=== PATIENT | male | born 1960 | race Caucasian/White ===

== ENCOUNTER → 2017-10-28 09:13 | Outpatient (CLI) | payer BC, SELFPAY ==
[2017-10-28 11:11] LABS: Cholesterol 195 mg/dL (50-200); HDL Cholesterol 50 mg/dL (40-60); LDL CHOLESTEROL 137 mg/dL (<100); Triglyceride 59 mg/dL (30-150)
[2017-10-29 13:56] LABS: Lyme Ab w Rflx to Lyme Confirm Negative
[2017-10-30 00:22] LABS: Anaplasma phagocytophilum Negative (Negative); B. miyamotoi PCR Negative (Negative); Babesia divergens/MO-1 Negative (Negative); Babesia duncani Negative (Negative); Babesia microti Negative (Negative); Ehrlichia chaffeensis Negative (Negative); Ehrlichia ewingii/canis Negative (Negative); Ehrlichia muris eauclairensis Negative (Negative)
== END ==
PROVIDERS: PCP Family Medicine; Visit Provider Family Medicine
DX: Z00.00 Encounter for general adult medical examination without abnormal findings (principal); Z13.220 Encounter for screening for lipoid disorders; Z91.89 Other specified personal risk factors, not elsewhere classified
CPT/HCPCS: 36415; 80061; 83721; 86618; 87798

== ENCOUNTER 2018-11-03 10:04 | Outpatient (CLI) | payer BC, SELFPAY ==
[2018-11-04 12:50] LABS: Lyme Ab w Rflx to Lyme Confirm Negative
== END 2018-11-03 10:24 ==
PROVIDERS: PCP Family Medicine; Visit Provider Family Medicine
DX: Z00.00 Encounter for general adult medical examination without abnormal findings (principal); Z11.8 Encounter for screening for other infectious and parasitic diseases
CPT/HCPCS: 36415; 86618

== ENCOUNTER 2019-01-07 06:09 | Day surgery (SDC) | payer BC, SELFPAY ==
[2019-01-07 06:30] VITALS: BP 107/69; PULSE 63; RESP 16; TEMP 36.5; O2SAT 98
[2019-01-07] MEDS: Lactated Ringers 1,000 ML 80 ML IV (06:45)
--- NOTE | 2019-01-07 07:28 | HPE_ITS ---
Date of service: 01/07/19 Time of Service: 07:28 Assessment and Plan Assessment and plan (1) Family hx of colon cancer requiring screening colonoscopy: Status: Acute Assessment and plan: Informed consent is obtained for the procedural (explained in simple layman's terms that the pt and/or family could understand) explaining risks vs benefits and alternatives to the procedure and consequences if we do not do the procedure and need/rational for the procedure. Risks include but are not limited to:bleeding, infection, perforation of esophagus, stomach, colon, small intestines, bronchus or trachea, or PTX. This would necessitate emergency surgery to repair the damage w/ possible ostomy; and other associated complications w/ the required surgery. Also complications of anesthesia including aspiration,HI/CVA/. History of Present Illness Consults Consult date: 01/07/19 Requesting physician: Uma Rayo Narrative: PreOP H&P: 58y/o male with history of BPH presents for colonoscopy screening pre-op. His last screening was in 2013, which was unremarkable. He reports a family history of colon cancer in his brother in his mid-fifties. He denies any changes in bowel habits including bloody or black tarry stools, abdominal pain, diarrhea or constipation. He denies constitutional symptoms. Denies use of marijuana or any other recreational or illegal drugs. He denies chest pain, palpitations, dyspnea or dyspnea with exertion. 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 He denies prior history or family history of adverse reactions or complications with anesthesia. pt is here today for CE he denies any changes in his health staTUS. denies recent ed admission. no new meds. no changes in health status. no new meds no URT s/s. Review of Systems Review of Systems ROS Unobtainable: All systems reviewed & are unremarkable except as noted in HPI and below PFSH Surgical History History of colonoscopy (Chronic) Repair of inguinal hernia 02/01/14;LEFT Family History Mother Heart disease Neoplasm LUNG Father Neoplasm Parkinson disease Brother Complete trisomy 21 syndrome Brother Heart disease CHF/PACEMAKER Myocardial infarction Neoplasm LYMPHOMA Brother Neoplasm COLON Grandfather Neoplasm LEUKEMIA Grandfather No problems noted. Grandmother No problems noted. Grandmother Neoplasm BREAST Sister Diabetes Depression Mental disorder Depression Sister No problems noted. Sister No problems noted. Sister Neoplasm BREAST Sister No problems noted. Brother No problems noted. Son No problems noted. Daughter No problems noted. Daughter No problems noted. Daughter No problems noted. Daughter No problems noted. Social History Smoking/Tobacco Use Status: Never Alcohol Intake: current Alcohol Intake frequency: a few times a month Drug use: Never Current gender identity: male Do you feel safe at home: Yes Meds Home Medications and Allergies Home Medications Medication Instructions Recorded Confirmed Type epinephrine [Epipen 2-Hieu] 0.3 mg IM ONCE #2 syringe 09/16/17 01/07/19 Rx acyclovir 800 mg tablet 800 mg PO DAILY PRN #90 tab 11/03/18 01/07/19 Rx tamsulosin 0.4 mg capsule 0.4 mg PO DAILY #90 tab-cap 11/03/18 01/07/19 Rx bisacodyl 5 mg tablet,delayed 5 mg PO ONCE #4 tab 12/04/18 01/07/19 Rx release polyethylene glycol 3350 17 238 g PO ONCE #238 gm 12/04/18 01/07/19 Rx gram/dose oral powder doxycycline hyclate 100 mg tablet 200 mg PO ONCE #2 tab 12/09/18 01/07/19 Rx Allergies Allergy/AdvReac Type Severity Reaction Status Date / Time bee venom protein (honey bee) Allergy Intermediate Swelling Verified 01/07/19 06:27 Exam Const General: cooperative, healthy appearing, comfortable and no acute distress Nutritional Appearance: average body habitus and well nourished Orientation: alert, awake and oriented x3 Other: PHYSICAL EXAM GENERAL APPEARANCE: Alert, healthy appearance, oriented, in no acute distress SKIN: No hyperpigmentation, vitiligo, or suspicious lesions No rashes. HYDRATION: Well hydrated HEAD, EYES, EARS, NECK, AND THROAT: Head is normocephalic, pupils equal, round, reactive to light and accommodation, ocular movement intact, sclera clear and no jaundice. Dentition intact. NECK: Supple, no lymphadenopathy. Trachea midline. LUNGS: normal respiration, clear to auscultation HEART: Regular rate and rhythm, EXTREMITY: No edema or cyanosis ABDOMEN: No hepatosplenomegaly, non tender to palpation, no masses or distention, no hernias. Normal bowel sounds NEURO: no focal neuro deficits. Results Last Vital Signs Temp 36.5 C 01/07/19 06:30 Pulse 63 01/07/19 06:30 Resp 16 01/07/19 06:30 BP 107/69 01/07/19 06:30 Pulse Ox 98 01/07/19 06:30
--- NOTE | 2019-01-07 08:00 | BOWEL_PTH ---
PATIENT: MEKHI BURROWS LOC: [facility] U#:[id number] AGE/SX: 58/M ROOM: RE01/07/[address]: Magda Ford : 1960 BED: DIS: 01/07/2019 SPEC #: [id number] RECD: 01/07/19 12:50 STATUS: MARY REQ #: [id number] JACK: 01/07/19 08:[address]: Magda Ford DEPT: Surgical Specimen RECD BY: Patti Escamilla ENTERED: 01/07/19 12:50 SP TYPE: Bowel OTHR DR: Uma Rayo MD, DC Tissues: 1 - BIOPSY BOWEL Procedures: GROSS AND MICRO LEVEL 4 Comments: [id number]
--- NOTE | 2019-01-07 08:06 | W.PM.DSUDISC ---
Discharge Plan Disposition Patient Disposition: HOME Condition: Good Discharge Details Reason For Visit: colon scope Attending Provider: Magda Ford Primary Care Provider: Uma Rayo Home Meds and New Rx's Prescriptions: Continued tamsulosin [Flomax] 0.4 mg capsule 0.4 mg PO DAILY Qty: 90 RF: 11 acyclovir 800 mg tablet 800 mg PO DAILY PRN (Reason: herpes) Qty: 90 RF: 4 epinephrine [EpiPen 2-Hieu] 0.3 MG/0.3 ML auto-injector 0.3 mg IM ONCE Qty: 2 RF: 0 doxycycline hyclate 100 mg tablet 200 mg PO ONCE Qty: 2 RF: 0 Discontinued polyethylene glycol 3350 17 gram/dose powder 238 g PO ONCE Qty: 238 RF: 0 bisacodyl [Dulcolax (bisacodyl)] 5 mg tablet,delayed release (DR/EC) 5 mg PO ONCE Qty: 4 RF: 0 Discharge Instructions Additional Instructions: Findings: x1 polyps in rectum may have some slight bleeding w/ first BM or in 7-10 days. If passing clots go to ED. repeat scope in 3-5 yrs Follow up: will send a letter in 2-3 wks w/ pathology results and when to repeat colonoscopy Please call if you develop: fevers >101.5 Nausea or Vomiting Abdominal pain that is not transient DAY SURGERY UNIT POST COLONOSCOPY INSTRUCTIONS 1. Because there will be medication in your system for the next 24 hours, you may feel a little sleepy. Your coordination will be affected. Therefore: a. Do not drive or operate dangerous equipment for 24 hours. b. Do not drink alcohol beverages for 24 hours (not even beer). c. Plan to go home and rest for the day. 2. Generally there are no restrictions on your activity after a day or so has gone by, but you may feel a bit fatigued for a few days. 3 After you arrive home you may have a light meal and return to a normal diet as you can tolerate it without feeling sick to your stomach. 4. After surgery, you may feel pain or discomfort. This should be only transient, but if it persists please contact your doctor. 5. If there are any questions regarding the findings of your procedure, please feel free to contact your doctor. 6. If you are unable to contact your doctor with a problem, contact the hospital at [phone]. 7. Continue all your regular medications unless directed otherwise. I understand the above instructions and have no questions. Signature of Patient or Responsible Adult Escort Date/Time Name of Responsible Adult Escort Signature of Nurse Date/Time Discharge Orders Discharge Orders: Discharge Order (Routine); Ordered 01/07/19 Ordered By: Magda Ford DS: Diagnosis Discharge Diagnosis (1) Family hx of colon cancer requiring screening colonoscopy: Status: Acute (2) Adenomatous polyps: Status: Acute
[2019-01-07 08:29] VITALS: BP 102/69; PULSE 62; RESP 16; TEMP 36.4; O2SAT 98
--- NOTE | 2019-01-07 09:06 | W.COLOREPORT ---
Date of service: 01/07/19 Time of Service: 09:06 Colonoscopy Report Date of procedure: 01/07/19 Pre-op diagnosis general: 1 degree. The family member with colon cancer Post-op diagnosis procedure note: other (Adenomatous polyps) Procedure: Colonoscopy Surgeon: Magda Ford Anesthesia proc note operative: GETA Estimated blood loss (mL): 1 Pathology: other Complications: None Disposition: same day Prep: Miralax/Dulcolax Retraction Time: 12 mins Procedure Description: After informed consent was obtained the patient was taken to the procedure room and placed in a left decubitous position. Monitors were applied and a time out was done. The patients name, date of , procedure, allergies to medications and metal in their body was reviewed. The patient was then sedated. Once sedated and comfortable a rectal exam was done. External exam was normal. Internal exam revealed a normal sphincter tone and no palpable masses. The prostate nl. The scope was then introduced and retrofelexed. No internal hemorrhoids were identified. The scope was then advanced to the cecum w/out difficulty. The TI and appendiceal orifice were identified. The prep was good. The scope was then slowly retracted over 12 minutes back into the rectum. Polyps were removed at rectum x1 hot biter. No diverticuli or AVMs apparent. All specimens are retrieved and no bleeding is noted. The scope was removed and the patient was woken up and taken back to Same day surgery in stable condition. The patient tolerated the procedure well and there were no immediate complications. Follow up: The patient should follow up in 3-5 yrs years unless they develop changes in bowel habits or other new gastrointestinal complaints.
== END 2019-01-07 09:00 | disposition home or self-care (01) ==
PROVIDERS: PCP Family Medicine; Visit Provider Surgery
PROC: 0DJD8ZZ Inspection of Lower Intestinal Tract, Via Natural or Artificial Opening Endoscopic (ICD-10-PCS; CPT 45378; principal; 2019-01-07 07:30)
DX: Z12.11 Encounter for screening for malignant neoplasm of colon (principal); K62.1 Rectal polyp; Z80.0 Family history of malignant neoplasm of digestive organs
CPT/HCPCS: 45384; 88305; 99221